=== PATIENT | female | born 1955 | race Caucasian/White ===

== ENCOUNTER 2023-11-29 | Outpatient (REF) | payer MEDICARE, SELFPAY | END 2023-11-29 00:01 | disposition home or self-care (01) | LOC: LAB | PROVIDERS: Visit Provider Obstetrics & Gynecology | DX: N88.2 Stricture and stenosis of cervix uteri (principal); B97.7 Papillomavirus as the cause of diseases classified elsewhere | CPT/HCPCS: 88305 ==

== ENCOUNTER 2024-05-29 18:34 | Outpatient (REF) | payer MEDICARE, SELFPAY ==
[2024-06-03 11:11] LABS: HPV Aptima Negative (Negative); Pap IG (Image Guided) Note (.)
== END 2024-05-29 18:35 | disposition home or self-care (01) ==
LOC: LAB 18:34
PROVIDERS: Visit Provider Obstetrics & Gynecology
DX: Z86.19 Personal history of other infectious and parasitic diseases (principal); Z12.4 Encounter for screening for malignant neoplasm of cervix
CPT/HCPCS: 88175

== ENCOUNTER 2024-12-31 21:40 | Outpatient (REF) | payer MEDICARE, SELFPAY | END 2024-12-31 21:41 | disposition home or self-care (01) | LOC: LAB 21:40 | PROVIDERS: Visit Provider Physician Assistant | DX: Z01.419 Encounter for gynecological examination (general) (routine) without abnormal findings (principal) | CPT/HCPCS: 88175 ==